=== PATIENT | female | born 1960 | race Caucasian/White ===

== ENCOUNTER 2017-08-25 23:02 | Emergency (ER) | payer BC ==
[~2017-08-25] VITALS: Ht 157.5 cm; Wt 110.1 kg
[~2017-08-25 23:02] MED LIST: FLUOXETINE HCL20 MG; LEVOTHROID150 MCG PO; LOVASTATIN20 MG PO; VERELAN 180 MG180 MG; VITAMIN D5000 INTUN
[2017-08-25 23:07] VITALS: BP 148/97
[2017-08-26] MEDS ORDERED: NORCO 5/3251 TABLET PO (00:25)
== END 2017-08-26 00:50 | disposition home or self-care (01) ==
LOC: EME 23:02
DX: M25.562 Pain in left knee (principal); I10 Essential (primary) hypertension; E78.5 Hyperlipidemia, unspecified
CPT/HCPCS: 73564; 99281; 99284